=== PATIENT | female | born 1955 | race Caucasian/White ===

== ENCOUNTER → 2016-05-13 | Outpatient (CLI) | payer MEDICARE, MEDICAID | LOC: MW.CHORTHO 08:00 | DX: M17.12 Unilateral primary osteoarthritis, left knee (principal) | CPT/HCPCS: G0463 ==

== ENCOUNTER 2016-08-24 06:42 | Day surgery (SDC) | payer MEDICARE, MEDICAID ==
--- NOTE | 2016-08-24 07:24 | PCM.PREANE ---
Preanesthetic Assessment - Anesthesia/Transfusion/Family Hx Anesthesia History: Prior Anesthesia Without Reaction Family History of Anesthesia Reaction: No Transfusion History: No Prior Transfusion(s) Intubation History: Unknown - Review of Systems General: No Symptoms Pulmonary: No Symptoms Cardiovascular: No Symptoms Gastrointestinal: No symptoms Neurological: No Symptoms Other: Reports: None - Physical Assessment O2 Sat by Pulse Oximetry: 94 Respiratory Rate: 16 Vital Signs: Last Vital Signs Temp 36.3 C 08/24/16 06:50 Pulse 74 08/24/16 06:50 Resp 16 08/24/16 06:50 BP 135/77 08/24/16 06:50 Pulse Ox 94 L 08/24/16 06:50 Height: 1.63 m Weight: 55.338 kg ASA Class: 3 Mental Status: Alert & Oriented x3 Airway Class: Mallampati = 2 Dentition: Reports: Normal Dentition Thyro-Mental Finger Breadths: 3 Mouth Opening Finger Breadths: 2 ROM/Head Extension: Limited/Partial Lungs: Clear to auscultation, Normal respiratory effort Cardiovascular: Regular Rate, Regular Rhythm - Allergies Allergies/Adverse Reactions: Allergies Allergy/AdvReac Type Severity Reaction Status Date / Time albuterol Allergy Agitation Verified 08/21/16 16:31 morphine Allergy Swelling Verified 08/21/16 16:31 - Blood Blood Available: No - Anesthesia Plan Pre-Op Medication Ordered: None - Acknowledgements Anesthesia Type Planned: MAC Pt an Appropriate Candidate for the Planned Anesthesia: Yes Alternatives and Risks of Anesthesia Discussed w Pt/Guardian: Yes Pt/Guardian Understands and Agrees with Anesthesia Plan: Yes PreAnesthesia Questionnaire HEENT History: Reports: None Other HEENT History: wears reading glasses Cardiovascular History: Reports: Hypertension Respiratory History: Reports: Asthma, COPD, Sleep Apnea Gastrointestinal History: Reports: Chronic Constipation, Cirrhosis, Hepatitis (h /o hepatitis C) Other Gastrointestinal History: has had treatment for hepatitis Genitourinary History: Reports: 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: Musculoskeletal History: Reports: Arthritis, Back Pain, Chronic, Fibromyalgia, Neck Pain, Chronic Neurological History: Reports: Other (See Below) Other Neuro History: chromic pain Psychiatric History: Reports: Anxiety, Depression Other Psychiatric History: sleep problem Endocrine/Metabolic History: Reports: None Hematologic History: Reports: Anemia Immunologic History: Reports: None Oncologic (Cancer) History: Reports: None Dermatologic History: Reports: Other (See Below) Other Dermatologic History: hx of shingles - Infectious Disease History Infectious Disease History: Reports: Chicken Pox, Hepatitis C, Shingles - Past Surgical History Head Surgeries/Procedures: Reports: None HEENT Surgical History: Reports: None Cardiovascular Surgical History: Reports: None Respiratory Surgical History: Reports: None GI Surgical History: Reports: Cholecystectomy Female Surgical History: Reports: None Endocrine Surgical History: Reports: None Neurological Surgical History: Reports: C-Spine (ACDF), Lumbar Spine Other Neurological Surgeries/Procedures: has had pain pump inserted in not working at present time Musculoskeletal Surgical History: Reports: ORIF, Other (See Below) Other Musculoskeletal Surgeries/Procedures:: ORIF left arm (elbow), has had "neck infusion", bone from hip and donor bone transfurred to neck to "build it up"; has had pain medicine pump inserted for chronic back pain Oncologic Surgical History: Reports: None Dermatological Surgical History: Reports: None - SUBSTANCE USE Smoking Status *Q: Light Tobacco Smoker Tobacco Use Within Last Twelve Months: Cigarettes Recreational Drug Use History: No - HOME MEDS Home Medications: Home Meds Baclofen 20 mg PO TID PRN 12/21/15 [History] Gabapentin [Neurontin] 600 mg PO TID 12/21/15 [History] Zolpidem [Ambien] 1 tab PO BEDTIME PRN 12/21/15 [History] Diazepam [Valium] 5 mg PO TID PRN 03/11/16 [History] Naloxegol Oxalate [Movantik] 25 mg PO QAM 03/11/16 [History] oxyCODONE HCl/Acetaminophen [Percocet 10-325 mg Tablet] 1 tab PO Q6HR PRN [History] Albuterol [Ventolin HFA] 2 puff INH QID PRN 08/21/16 [History] buPROPion [Wellbutrin XL] 150 mg PO DAILY 08/21/16 [History]
[2016-08-24] MEDS ORDERED: Lidocaine 1% with EPINEPHrine 1:100,000 20 ML MDV ONE (07:29)
[2016-08-24] MEDS ORDERED: Propofol 200 MG/20 ML SDV ONE ×2 (07:38→09:03)
[2016-08-24] MEDS ORDERED: Midazolam 1 MG/ML 2 ML SDV ONE ×2 (07:38→09:03)
[2016-08-24] MEDS ORDERED: Lidocaine 2% 5 ML SDV ONE ×2 (07:38→09:03)
[2016-08-24] MEDS ORDERED: fentaNYL 100 MCG/2 ML SDV ONE ×2 (07:38→09:03)
[2016-08-24] MEDS ORDERED: Ondansetron 4 MG/2 ML SDV ONE (08:18)
[2016-08-24] MEDS ORDERED: fentaNYL 100 MCG/2 ML SDV IVPUSH PRN (08:42)
--- NOTE | 2016-08-24 08:53 | PCM.OPNOTE ---
- General Post-Op/Procedure Note Date of Surgery/Procedure: 08/24/16 Operative Procedure(s): Loop electrosurgical excision Proceddure, LEEP Findings: Small anteverted uterus, no parametrial or paracervical thickening palpable Atrophic vagina and cervix with cervix flushed to the vaginal wall. Area of biopsies at colpo healing well. Lugol's iodide stained ectocervix deeply. Pre Op Diagnosis: Cervical intraepithial neoplasia 3 Post-Op Diagnosis: Same Anesthesia Technique: General LMA Primary Surgeon: Cielo Riley Pathology: LEEP specimen tagged at 12 0'clock and ECC sample EBL in mLs: 5 Complications: None Condition: Good
[2016-08-24 10:08] VITALS: BP 130/75
--- NOTE | 2016-08-24 11:05 | OR ---
SURGEON: Cielo Riley MD DATE OF PROCEDURE: 08/24/2016 PREOPERATIVE DIAGNOSIS: Cervical intraepithelial neoplasia type 3 (ANUEL-III). POSTOPERATIVE DIAGNOSIS: Cervical intraepithelial neoplasia type 3 (ANUEL-III). PROCEDURE: Loop electrosurgical excision procedure (LEEP). ANESTHESIA: General, LMA. ESTIMATED BLOOD LOSS: Less than 5 mL. COMPLICATIONS: None. DISPOSITION: Stable to recovery room. FINDINGS: Normal external genitalia. Anteverted mobile uterus less than six weeks size, no parametrial or paracervical nodularity palpable. Atrophic vagina and cervix with the cervix flushed onto the anterior vaginal wall. The areas of colposcopy biopsies are healing well. BRIEF HISTORY: The patient is a 61-year-old postmenopausal lady who was referred by her primary healthcare for colposcopy secondary to a recent low-grade squamous intraepithelial lesion on Pap smear. Colposcopy directed biopsies were consistent with ANUEL-III and also ANUEL-II on the ECC sample. These results were discussed with the patient and surgical excision of the transformation zone was recommended and she agreed to proceed with it after risks and benefits were discussed extensively. Appropriate consent was obtained. DESCRIPTION OF PROCEDURE: The patient was taken to the operating room, and after an adequate level of anesthesia, she was placed in dorsal lithotomy position, prepped and draped in the usual fashion for LEEP procedure. Appropriate time-out was held. A non conductive bivalve speculum was placed into the vagina and the vagina was cleaned out after an examination under anesthesia was performed. The cervix was painted with Lugol's iodine and as expected the ectocervix stained deeply. Paracervical block was performed with 1% lidocaine, with epinephrine 1:10,000 dilution. A routine LEEP procedure was performed with a size 20 x 20 mm loop and the specimen was removed circumferentially in whole. It was tagged at 12 o'clock. An ECC sample was then obtained and collected with Cytobrush. The area was made hemostatic with electrocautery. The patient tolerated the procedure well. Sponge, instrument, and needle counts were correct at the end of the procedure. She was taken to the recovery room in stable condition. LATA / DEMETRI /[id number] MORRIS
== END 2016-08-24 10:06 | disposition home or self-care (01) ==
LOC: MW.SDS 06:42
PROVIDERS: ATTEND Obstetrics & Gynecology
PROC: 0UBC7ZZ Excision of Cervix, Via Natural or Artificial Opening (ICD-10-PCS; principal; 2016-08-24)
DX: N87.1 Moderate cervical dysplasia (principal); N72 Inflammatory disease of cervix uteri; F41.9 Anxiety disorder, unspecified; F32.9 Major depressive disorder, single episode, unspecified; J45.909 Unspecified asthma, uncomplicated; K74.60 Unspecified cirrhosis of liver; M79.7 Fibromyalgia; I10 Essential (primary) hypertension; G47.30 Sleep apnea, unspecified; F17.210 Nicotine dependence, cigarettes, uncomplicated; J44.9 Chronic obstructive pulmonary disease, unspecified; Z79.899 Other long term (current) drug therapy; Z86.19 Personal history of other infectious and parasitic diseases; Z90.49 Acquired absence of other specified parts of digestive tract; Z98.890 Other specified postprocedural states; Z88.5 Allergy status to narcotic agent; Z88.8 Allergy status to other drugs, medicaments and biological substances; Z98.1 Arthrodesis status
CPT/HCPCS: 36415; 57522; 85025; 88305; 88307; J2250; J2405; J3010; 00940; J2704

== ENCOUNTER 2016-10-19 10:31 | Emergency (ER) | payer MEDICARE, MEDICAID ==
[2016-10-19] MEDS ORDERED: Sodium Chloride 0.9% 1,000 ML IV ONE ×2 (10:52→12:15)
--- NOTE | 2016-10-19 11:24 | EDM.PDOC ---
ED HPI GENERAL MEDICAL PROBLEM - General Chief Complaint: ENT Problem Stated Complaint: INFECTION Time Seen by Provider: 10/19/16 10:35 Source of Information: Reports: Patient History Limitations: Reports: No Limitations - History of Present Illness INITIAL COMMENTS - FREE TEXT/NARRATIVE: History of present illness: [61-year-old female comes in complaining of systemic fungal infection. A shunt sites an implantable pain pump being the taylor of this infection. Patient indicates she was treated once prior for and it has returned. Patient was also indicating that she was seen with no effective treatment in [place] for this mycotic infestation and so presents today needing help as she feels that it is causing her body to shut down. Patient is speaking in a somewhat tangential fashion indicating that she has not gone to the bathroom in excess of 30 days.] Review of systems: As per history of present illness and below otherwise all systems reviewed and negative. Past medical history: As per history of present illness and as reviewed below otherwise noncontributory. Surgical history: As per history of present illness and as reviewed below otherwise noncontributory. Social history: No reported history of drug or alcohol abuse. Family history: As per history of present illness and as reviewed below otherwise noncontributory. Physical exam: HEENT: Atraumatic, normocephalic, pupils reactive, negative for conjunctival pallor or scleral icterus, mucous membranes moist, throat clear, neck supple, nontender, trachea midline. Lungs: Clear to auscultation, breath sounds equal bilaterally, chest nontender. Heart: S1S2, regular, negative for clicks, rubs, or JVD. Abdomen: Soft, nondistended, nontender. Negative for masses or hepatosplenomegaly. Negative for costovertebral tenderness. Pelvis: Stable nontender. Genitourinary: Deferred. Rectal: Deferred. Extremities: Atraumatic, negative for cords or calf pain. Neurovascular unremarkable. Neuro: Awake, alert, oriented. Cranial nerves II through XII unremarkable. Cerebellum unremarkable. Motor and sensory unremarkable throughout. Exam nonfocal. Patient indicates she feels substantially better and is ready to go home. Diagnostics: [CBC, CMP, tox screen, CT of abdomen with contrast] Therapeutics: [] Impression: [Chronic pain, worried well] Plan: [Follow-up with Dr. Laure Rodriguez as are the scheduled] Definitive disposition and diagnosis as appropriate pending reevaluation and review of above. Generalized Pain Score (Numeric/FACES): 9 - Related Data Allergies Allergy/AdvReac Type Severity Reaction Status Date / Time albuterol Allergy Agitation Verified 10/19/16 10:37 morphine Allergy Swelling Verified 10/19/16 10:37 Home Meds: Home Meds Baclofen 20 mg PO TID PRN 12/21/15 [History] Gabapentin [Neurontin] 600 mg PO TID 12/21/15 [History] Zolpidem [Ambien] 1 tab PO BEDTIME PRN 12/21/15 [History] Diazepam [Valium] 5 mg PO TID PRN 03/11/16 [History] Naloxegol Oxalate [Movantik] 25 mg PO QAM 03/11/16 [History] oxyCODONE HCl/Acetaminophen [Percocet 10-325 mg Tablet] 1 tab PO Q6HR PRN [History] Albuterol [Ventolin HFA] 2 puff INH QID PRN 08/21/16 [History] buPROPion [Wellbutrin XL] 150 mg PO DAILY 08/21/16 [History] Past Medical History HEENT History: Reports: None Other HEENT History: wears reading glasses Cardiovascular History: Reports: Hypertension Respiratory History: Reports: Asthma, COPD, Sleep Apnea Gastrointestinal History: Reports: Chronic Constipation, Cirrhosis, Hepatitis Other Gastrointestinal History: has had treatment for hepatitis Genitourinary History: Reports: 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: Musculoskeletal History: Reports: Arthritis, Back Pain, Chronic, Fibromyalgia, Neck Pain, Chronic Neurological History: Reports: Other (See Below) Other Neuro History: chromic pain Psychiatric History: Reports: Anxiety, Depression Other Psychiatric History: sleep problem Endocrine/Metabolic History: Reports: None Hematologic History: Reports: Anemia Immunologic History: Reports: None Oncologic (Cancer) History: Reports: None Dermatologic History: Reports: Other (See Below) Other Dermatologic History: hx of shingles - Infectious Disease History Infectious Disease History: Reports: Chicken Pox, Hepatitis C, Shingles - Past Surgical History Head Surgeries/Procedures: Reports: None HEENT Surgical History: Reports: None Cardiovascular Surgical History: Reports: None Respiratory Surgical History: Reports: None GI Surgical History: Reports: Cholecystectomy Female Surgical History: Reports: None Endocrine Surgical History: Reports: None Neurological Surgical History: Reports: C-Spine, Lumbar Spine Other Neurological Surgeries/Procedures: has had pain pump inserted in not working at present time Musculoskeletal Surgical History: Reports: ORIF, Other (See Below) Other Musculoskeletal Surgeries/Procedures:: ORIF left arm (elbow), has had "neck infusion", bone from hip and donor bone transfurred to neck to "build it up"; has had pain medicine pump inserted for chronic back pain Oncologic Surgical History: Reports: None Dermatological Surgical History: Reports: None Social & Family History - Family History Family Medical History: Noncontributory - Tobacco Use Smoking Status *Q: Current Every Day Smoker Years of Tobacco use: 44 Packs/Tins Daily: 0.2 - Recreational Drug Use Recreational Drug Use: No Drug Use in Last 12 Months: No ED ROS GENERAL - Review of Systems Review Of Systems: See Below (See history of present illness) ED EXAM, GENERAL - Physical Exam Exam: See Below (See history of present illness) Course - Vital Signs Last Recorded V/S: Last Vital Signs Temp 36.4 C 10/19/16 10:37 Pulse 86 10/19/16 10:37 Resp 16 10/19/16 10:37 BP 156/107 H 10/19/16 10:37 Pulse Ox 99 10/19/16 10:37 - Orders/Labs/Meds Labs: Laboratory Tests 10/19/16 10/19/16 10/19/16 Range/Units 11:00 11:00 11:00 WBC 9.29 (4.0-11.0) K/uL RBC 4.63 (4.30-5.90) M/uL Hgb 14.8 (12.0-16.0) g/dL Hct 44.9 (36.0-46.0) % MCV 97.0 (80.0-98.0) fL MCH 32.0 (27.0-32.0) pg MCHC 33.0 (31.0-37.0) g/dL RDW Std Deviation 47.2 (28.0-62.0) fl RDW Coeff of Edgar 13 (11.0-15.0) % Plt Count 166 (150-400) K/uL MPV 11.30 (7.40-12.00) fL Neut % (Auto) 52.0 (48.0-80.0) % Lymph % (Auto) 34.9 (16.0-40.0) % Morris % (Auto) 10.2 (0.0-15.0) % Eos % (Auto) 2.7 (0.0-7.0) % Baso % (Auto) 0.2 (0.0-1.5) % Neut # (Auto) 4.8 (1.4-5.7) K/uL Lymph # (Auto) 3.2 H (0.6-2.4) K/uL Morris # (Auto) 1.0 H (0.0-0.8) K/uL Eos # (Auto) 0.3 (0.0-0.7) K/uL Baso # (Auto) 0.0 (0.0-0.1) K/uL Nucleated RBC % 0.0 /100WBC Nucleated RBCs # 0 K/uL Sodium 144 (136-146) mmol/L Potassium 4.7 (3.5-5.1) mmol/L Chloride 107 (98-110) mmol/L Carbon Dioxide 30 (21-31) mmol/L BUN 14 (6.0-23.0) mg/dL Creatinine 0.9 (0.6-1.5) mg/dL Est Cr Clr Drug Dosing 54.94 mL/min Estimated GFR (MDRD) > 60.0 ml/min Glucose 98 (60-110) mg/dL Calcium 9.5 (8.8-10.8) mg/dL Total Bilirubin 0.2 (0.1-1.5) mg/dL AST 21 (5-40) IU/L ALT 20 (8-54) IU/L Alkaline Phosphatase 102 (40-150) Total Protein 6.7 (6.0-8.0) g/dL Albumin 3.8 (3.5-5.0) g/dL Globulin 2.9 (2.0-3.5) g/dL Albumin/Globulin Ratio 1.3 (1.3-2.8) Amylase 69 (10-90) U/L Lipase 58 (7-80) U/L Urine Color Urine Appearance Urine pH (5.0-8.0) Ur Specific Harvel (1.001-1.035) Urine Protein (NEGATIVE) mg/dL Urine Glucose (UA) (NEGATIVE) mg/dL Urine Ketones (NEGATIVE) mg/dL Urine Occult Blood (NEGATIVE) Urine Nitrite (NEGATIVE) Urine Bilirubin (NEGATIVE) Urine Urobilinogen (<2.0) EU/dL Ur Leukocyte Esterase (NEGATIVE) Urine RBC (0-2/HPF) Urine WBC (0-5/HPF) Ur Epithelial Cells (NONE-FEW) Urine Bacteria (NEGATIVE) Urine Opiates Screen (NEGATIVE) Ur Oxycodone Screen (NEGATIVE) Urine Methadone Screen (NEGATIVE) Ur Barbiturates Screen (NEGATIVE) Ur Phencyclidine Scrn (NEGATIVE) Ur Amphetamine Screen (NEGATIVE) U Methamphetamines Scrn (NEGATIVE) U Benzodiazepines Scrn (NEGATIVE) U Cocaine Metab Screen (NEGATIVE) U Marijuana (THC) Screen (NEGATIVE) Ethyl Alcohol < 10.0 mg/dL 10/19/16 10/19/16 Range/Units 13:00 13:00 WBC (4.0-11.0) K/uL RBC (4.30-5.90) M/uL Hgb (12.0-16.0) g/dL Hct (36.0-46.0) % MCV (80.0-98.0) fL MCH (27.0-32.0) pg MCHC (31.0-37.0) g/dL RDW Std Deviation (28.0-62.0) fl RDW Coeff of Edgar (11.0-15.0) % Plt Count (150-400) K/uL MPV (7.40-12.00) fL Neut % (Auto) (48.0-80.0) % Lymph % (Auto) (16.0-40.0) % Morris % (Auto) (0.0-15.0) % Eos % (Auto) (0.0-7.0) % Baso % (Auto) (0.0-1.5) % Neut # (Auto) (1.4-5.7) K/uL Lymph # (Auto) (0.6-2.4) K/uL Morris # (Auto) (0.0-0.8) K/uL Eos # (Auto) (0.0-0.7) K/uL Baso # (Auto) (0.0-0.1) K/uL Nucleated RBC % /100WBC Nucleated RBCs # K/uL Sodium (136-146) mmol/L Potassium (3.5-5.1) mmol/L Chloride (98-110) mmol/L Carbon Dioxide (21-31) mmol/L BUN (6.0-23.0) mg/dL Creatinine (0.6-1.5) mg/dL Est Cr Clr Drug Dosing mL/min Estimated GFR (MDRD) ml/min Glucose (60-110) mg/dL Calcium (8.8-10.8) mg/dL Total Bilirubin (0.1-1.5) mg/dL AST (5-40) IU/L ALT (8-54) IU/L Alkaline Phosphatase (40-150) Total Protein (6.0-8.0) g/dL Albumin (3.5-5.0) g/dL Globulin (2.0-3.5) g/dL Albumin/Globulin Ratio (1.3-2.8) Amylase (10-90) U/L Lipase (7-80) U/L Urine Color YELLOW Urine Appearance CLEAR Urine pH 6.5 (5.0-8.0) Ur Specific Harvel 1.010 (1.001-1.035) Urine Protein NEGATIVE (NEGATIVE) mg/dL Urine Glucose (UA) NEGATIVE (NEGATIVE) mg/dL Urine Ketones NEGATIVE (NEGATIVE) mg/dL Urine Occult Blood SMALL H (NEGATIVE) Urine Nitrite NEGATIVE (NEGATIVE) Urine Bilirubin NEGATIVE (NEGATIVE) Urine Urobilinogen 0.2 (<2.0) EU/dL Ur Leukocyte Esterase NEGATIVE (NEGATIVE) Urine RBC 2-4 (0-2/HPF) Urine WBC 0-2 (0-5/HPF) Ur Epithelial Cells FEW (NONE-FEW) Urine Bacteria FEW (NEGATIVE) Urine Opiates Screen NEGATIVE (NEGATIVE) Ur Oxycodone Screen NEGATIVE (NEGATIVE) Urine Methadone Screen NEGATIVE (NEGATIVE) Ur Barbiturates Screen NEGATIVE (NEGATIVE) Ur Phencyclidine Scrn NEGATIVE (NEGATIVE) Ur Amphetamine Screen NEGATIVE (NEGATIVE) U Methamphetamines Scrn NEGATIVE (NEGATIVE) U Benzodiazepines Scrn POSITIVE (NEGATIVE) U Cocaine Metab Screen NEGATIVE (NEGATIVE) U Marijuana (THC) Screen NEGATIVE (NEGATIVE) Ethyl Alcohol mg/dL Meds: Medications Discontinued Medications Generic Name Dose Route Start Last Admin Trade Name Freq PRN Reason Stop Dose Admin Baclofen 20 mg 10/19/16 14:07 Lioresal PO 10/19/16 14:08 ONETIME ONE Gabapentin 600 mg 10/19/16 14:07 Neurontin PO 10/19/16 14:08 ONETIME ONE Sodium Chloride 1,000 mls @ 999 mls/hr 10/19/16 10:52 10/19/16 11:06 Normal Saline IV 10/19/16 11:52 999 mls/hr STAT ONE Administration Sodium Chloride 1,000 mls @ 999 mls/hr 10/19/16 12:15 10/19/16 12:22 Normal Saline IV 10/19/16 13:15 999 mls/hr .Bolus ONE Administration Iopamidol 100 ml 10/19/16 13:26 10/19/16 13:27 Isovue Multipack-370 (76%) IVPUSH 10/19/16 13:27 100 ml ONETIME STA Administration Oxycodone/Acetaminophen 1 tab 10/19/16 13:14 10/19/16 13:37 Percocet 325-10 Mg PO 10/19/16 13:15 1 tab ONETIME ONE Administration Departure - Departure Time of Disposition: 14:32 Disposition: Home, Self-Care 01 Condition: Good Clinical Impression: Physically well but worried - Discharge Information Forms: ED Department Discharge Additional Instructions: The following information is given to patients seen in the emergency department who are being discharged to home. This information is to outline your options for follow-up care. We provide all patients seen in our emergency department with a follow-up referral. The need for follow-up, as well as the timing and circumstances, are variable depending upon the specifics of your emergency department visit. If you don't have a primary care physician on staff, we will provide you with a referral. We always advise you to contact your personal physician following an emergency department visit to inform them of the circumstance of the visit and for follow-up with them and/or the need for any referrals to a consulting specialist. The emergency department will also refer you to a specialist when appropriate. This referral assures that you have the opportunity for follow-up care with a specialist. All of these measure are taken in an effort to provide you with optimal care, which includes your follow-up. Under all circumstances we always encourage you to contact your private physician who remains a resource for coordinating your care. When calling for follow-up care, please make the office aware that this follow-up is from your recent emergency room visit. If for any reason you are refused follow-up, please contact the [facility] Emergency Department at and asked to speak to the emergency department charge nurse. Follow-up with Dr. Mariusz spauldnig scheduled Return to ED as needed as discussed
[2016-10-19 11:39] LABS: CHLORIDE,CL 107 mmol/L (98-110); SODIUM,NA 144 mmol/L (136-146)
[2016-10-19] MEDS ORDERED: Acetaminophen/oxyCODONE 325-10 MG Tab PO ONE (13:14)
[2016-10-19] MEDS ORDERED: Iopamidol 755 MG/ML 500 ML Multipack Bottle IVPUSH STA (13:26)
[2016-10-19] MEDS ORDERED: Gabapentin 300 MG Cap PO ONE (14:07)
[2016-10-19] MEDS ORDERED: Baclofen 10 MG Tab PO ONE (14:07)
--- NOTE | 2016-10-19 14:12 | CT ---
CT of the abdomen and pelvis with contrast. HISTORY: Pain TECHNIQUE: Axial CT images were obtained of the abdomen and pelvis following administration of 100 m L of Isovue-370 in the left antecubital fossa without complication. Coronal and sagittal reconstruct ions obtained. FINDINGS: The visualized lung bases are clear. The visualized liver, spleen, adrenal glands, pancreas appear unremarkable. Cholecystectomy clips ar e noted. Bulky retroperitoneal lymphadenopathy or abdominal ascites. The kidneys enhance and function symmetrically without evidence of obstructive uropathy. The large and small bowel are normal in caliber without evidence of obstruction. No focal pericoloni c inflammation or stranding. The appendix appears normal. The urinary bladder is normal. No bulky pe lvic lymphadenopathy or free pelvic fluid. Spinal stimulator device projects along the left lower qu adrant with leads in the midthoracic spine. There is a mild prominence of the left and right ovarian veins and several pelvic veins noted. No suspicious osseous abnormalities identified. IMPRESSION: 1. No acute findings within the abdomen or pelvis. 2. Mild prominence of the ovarian veins bilaterally and several pelvic veins, this could suggest pel harsha congestion syndrome.
[2016-10-19 14:51] VITALS: BP 170/79
== END 2016-10-19 14:50 | disposition home or self-care (01) ==
LOC: MW.ED 10:31
DX: G89.29 Other chronic pain (principal); R52 Pain, unspecified; J44.9 Chronic obstructive pulmonary disease, unspecified; F41.9 Anxiety disorder, unspecified; F32.9 Major depressive disorder, single episode, unspecified; F17.210 Nicotine dependence, cigarettes, uncomplicated; Z88.5 Allergy status to narcotic agent; Z79.899 Other long term (current) drug therapy; Z86.2 Personal history of diseases of the blood and blood-forming organs and certain disorders involving the immune mechanism; Z90.49 Acquired absence of other specified parts of digestive tract; I10 Essential (primary) hypertension; Z71.1 Person with feared health complaint in whom no diagnosis is made
CPT/HCPCS: 36415; 74177; 80053; 80305; 81001; 82150; 83690; 85025; 96360; 96361; 99284; A9270; G0480; J7040; Q9967; 99283